=== PATIENT | female | born 1985 | race Caucasian/White ===

== ENCOUNTER 2018-05-29 06:10 | Inpatient (IN) | payer MEDICAID ==
[2018-05-29] MEDS ORDERED: cefOXitin 2 GM in Sodium Chloride 0.9% 50 ML IV ONE (06:30)
[2018-05-29] MEDS ORDERED: Scopolamine 1.5 MG Transdermal Patch TOP SCH (06:30)
[2018-05-29] MEDS ORDERED: Acetaminophen 500 MG Tab PO ONE (06:30)
[2018-05-29] MEDS ORDERED: Dextrose 5%-Lactated Ringers 1,000 ML IV SCH ×2 (06:30→10:45)
[2018-05-29] MEDS ORDERED: Gabapentin 300 MG Cap PO ONE (06:30)
[2018-05-29] MEDS ORDERED: Celecoxib 200 MG Cap PO ONE (06:30)
[2018-05-29] MEDS ORDERED: cefOXitin 2 GM Vial ONE (06:56)
[2018-05-29] MEDS ORDERED: Albuterol/Ipratropium 3.0-0.5 MG/3 ML Neb Soln NEB ONE (07:00)
[2018-05-29] MEDS ORDERED: Lidocaine 2% 100 MG/5 ML Syringe IVPUSH SCH (07:00)
[2018-05-29] MEDS ORDERED: Ketamine 50 MG in Sodium Chloride 0.9% 49.5 ML IV SCH (07:00)
[2018-05-29] MEDS ORDERED: Ropivacaine 60 ML, Dexamethasone 8 MG, EPINEPHrine 0.4 MG, Sodium Chloride 0.9% 17.6 ML NERVRT SCH ×4 (07:00)
[2018-05-29] MEDS ORDERED: Ketamine 500 MG/5 ML MDV IV SCH (07:00)
[2018-05-29] MEDS ORDERED: fentaNYL 250 MCG/5 ML SDV ONE ×2 (07:02→07:50)
[2018-05-29] MEDS ORDERED: Dexamethasone 4 MG/ML SDV ONE (07:03)
[2018-05-29] MEDS ORDERED: Neostigmine Methylsulfate 1 MG/ML 5 ML Syringe ONE (07:03)
[2018-05-29] MEDS ORDERED: Succinylcholine 200 MG/10 ML MDV ONE (07:03)
[2018-05-29] MEDS ORDERED: Glycopyrrolate 0.2 MG/ML 5 ML MDV ONE (07:03)
[2018-05-29] MEDS ORDERED: Ondansetron 4 MG/2 ML SDV ONE (07:03)
[2018-05-29] MEDS ORDERED: Propofol 200 MG/20 ML SDV ONE (07:03)
[2018-05-29] MEDS ORDERED: Rocuronium 50 MG/5 ML Vial ONE (07:03)
[2018-05-29] MEDS ORDERED: Lactated Ringers 1,000 ML ONE (07:06)
[2018-05-29 07:13] LABS: HEMOGLOBIN A1C 8.6 % (4.5-6.2)
[2018-05-29] MEDS ORDERED: Labetalol 20 MG/4 ML Syringe ONE (08:06)
[2018-05-29] MEDS ORDERED: cefOXitin 2 GM Vial IRR ONE (08:30)
[2018-05-29] MEDS ORDERED: hydrOXYzine HCl 100 MG/2 ML SDV IM ONE (09:20)
[2018-05-29] MEDS ORDERED: Insulin Lispro 100 Unit/ML 3 ML KwikPen SUBCUT ONE (09:25)
[2018-05-29] MEDS ORDERED: Albuterol/Ipratropium 3.0-0.5 MG/3 ML Neb Soln INH PRN (10:44)
[2018-05-29] MEDS ORDERED: SCOPOLAMINE PATCH ASK TOP SCH (10:44)
[2018-05-29] MEDS ORDERED: Labetalol 20 MG/4 ML Syringe IVPUSH PRN (10:44)
[2018-05-29] MEDS ORDERED: HYDROmorphone 0.5 MG/0.5 ML Syringe IVPUSH PRN (10:44)
[2018-05-29] MEDS ORDERED: Metoclopramide 10 MG/2 ML SDV IVPUSH PRN (10:44)
[2018-05-29] MEDS ORDERED: HYDROmorphone 1 MG/ML Syringe IV PRN (10:44)
[2018-05-29] MEDS ORDERED: Ondansetron 4 MG/2 ML SDV IVPUSH PRN (10:44)
[2018-05-29] MEDS ORDERED: hydrOXYzine HCl 100 MG/2 ML SDV IM PRN (10:44)
[2018-05-29] MEDS ORDERED: diphenhydrAMINE 50 MG/ML SDV IVPUSH PRN (10:44)
[2018-05-29] MEDS: Lidocaine 0.4%/D5W 2 GM/500 ML BAG IV SCH (11:20)
[2018-05-29] MEDS: Lactated Ringers 1,000 ML IV SCH ×2 (11:30→20:49)
[2018-05-29] MEDS: Albuterol/Ipratropium 3.0-0.5 MG/3 ML Neb Soln INH SCH ×3 (11:30→20:49)
[2018-05-29] MEDS: Gabapentin 250 MG/5 ML Solution ML 470 ML Bottle PO SCH ×2 (13:12→20:48)
[2018-05-29] MEDS: cefOXitin 2 GM in Sodium Chloride 0.9% 50 ML IV SCH ×2 (13:54→20:48)
[2018-05-29] MEDS ORDERED: Pantoprazole 40 MG Vial IVPUSH SCH (14:00)
[2018-05-29] MEDS ORDERED: MVI, Adult with Vitamin K 10 ML, Thiamine 200 MG, Chromium/Copper/Mang/Selen/Zn 1 ML in... IV SCH ×4 (16:00)
[2018-05-29] MEDS: Insulin Lispro 100 Unit/ML 3 ML KwikPen SUBCUT PRN ×2 (16:29→22:26)
[2018-05-29] MEDS: Acetaminophen Soln 650 MG/20.3 ML UD Cup PO SCH ×2 (16:30→22:26)
[2018-05-29] MEDS: Heparin Sodium 5,000 Units/ML Vial SUBCUT SCH (16:30)
[2018-05-29] MEDS: metFORMIN 500 MG Tab PO SCH (16:36)
[2018-05-30] MEDS: cefOXitin 2 GM in Sodium Chloride 0.9% 50 ML IV SCH ×2 (02:33→08:43)
[2018-05-30] MEDS: Acetaminophen Soln 650 MG/20.3 ML UD Cup PO SCH ×4 (03:28→21:49)
[2018-05-30] MEDS: Heparin Sodium 5,000 Units/ML Vial SUBCUT SCH ×2 (03:28→16:18)
[2018-05-30] MEDS ORDERED: Iohexol 647 MG/ML 50 ML SDV PO SCH (04:00)
[2018-05-30] MEDS: Insulin Lispro 100 Unit/ML 3 ML KwikPen SUBCUT PRN ×3 (04:23→16:18)
--- NOTE | 2018-05-30 05:21 | CRLCR ---
INDICATION: Evaluate gastric bypass. TECHNIQUE: Two views of the abdomen. FINDINGS: There is a drain in the left upper quadrant. Contrast opacifying left abdominal jejunal segments with reported gastrojejunostomy. Gastric lumen not opacified. No gross extravasation. No free air under the left hemidiaphragm. Dictated by Raza Orona MD @ Jun 01 2018 9:01AM Signed by Dr. Raza Orona @ Jun 01 2018 9:03AM
[2018-05-30] MEDS: Albuterol/Ipratropium 3.0-0.5 MG/3 ML Neb Soln INH SCH ×4 (07:12→21:49)
[2018-05-30] MEDS ORDERED: Loratadine 10 MG Tab.DIS PO PRN (07:55)
[2018-05-30] MEDS ORDERED: Lactated Ringers 1,000 ML IV SCH (08:00)
[2018-05-30] MEDS: Lidocaine 0.4%/D5W 2 GM/500 ML BAG IV SCH (08:11)
[2018-05-30] MEDS ORDERED: Ondansetron 4 MG Tab.DIS PO PRN (08:21)
[2018-05-30] MEDS: Celecoxib 200 MG Cap PO SCH (08:47)
[2018-05-30] MEDS: metFORMIN 500 MG Tab PO SCH ×2 (08:47→16:20)
[2018-05-30] MEDS: Sertraline 50 MG Tab PO SCH (08:48)
[2018-05-30] MEDS: SCOPOLAMINE PATCH CHECK TOP SCH (08:53)
[2018-05-30] MEDS: Pantoprazole 40 MG Delayed-Release Granules 1 Packet PO SCH (09:02)
[2018-05-30] MEDS: Gabapentin 250 MG/5 ML Solution ML 470 ML Bottle PO SCH ×3 (09:02→21:49)
[2018-05-30] MEDS: Mometasone Furoate Powder 220 MCG/Puff 14 Dose Inhaler INH SCH (09:06)
[2018-05-30] MEDS ORDERED: MVI, Adult with Vitamin K 10 ML, Thiamine 200 MG, Chromium/Copper/Mang/Selen/Zn 1 ML in... IV SCH ×4 (16:00)
[2018-05-31] MEDS: Heparin Sodium 5,000 Units/ML Vial SUBCUT SCH (04:04)
[2018-05-31] MEDS: Acetaminophen Soln 650 MG/20.3 ML UD Cup PO SCH ×2 (04:04→10:14)
[2018-05-31] MEDS: Mometasone Furoate Powder 220 MCG/Puff 14 Dose Inhaler INH SCH (06:59)
[2018-05-31] MEDS: Albuterol/Ipratropium 3.0-0.5 MG/3 ML Neb Soln INH SCH ×2 (06:59→10:54)
[2018-05-31] MEDS: Celecoxib 200 MG Cap PO SCH (08:01)
[2018-05-31] MEDS: metFORMIN 500 MG Tab PO SCH (08:01)
[2018-05-31] MEDS: Pantoprazole 40 MG Delayed-Release Granules 1 Packet PO SCH (08:01)
[2018-05-31] MEDS: Sertraline 50 MG Tab PO SCH (08:01)
[2018-05-31] MEDS: Gabapentin 250 MG/5 ML Solution ML 470 ML Bottle PO SCH (08:01)
[2018-05-31] MEDS ORDERED: Magnesium Hydroxide 400 MG/5 ML Susp 30 ML Cup PO ONE (08:41)
[2018-05-31] MEDS ORDERED: Cyanocobalamin (Vitamin B12) 1,000 MCG/ML SDV IM ONE (09:00)
[2018-05-31] MEDS: SCOPOLAMINE PATCH CHECK TOP SCH (09:26)
[2018-05-31] MEDS: Insulin Lispro 100 Unit/ML 3 ML KwikPen SUBCUT PRN (10:15)
--- NOTE | 2018-06-01 08:26 | PN ---
DATE OF SERVICE: 05/30/2018 The patient has been afebrile with stable vital signs, status post Nagi-en-Y gastric bypass yesterday. Her upper GI x-ray looks good. Oral intake thus far has been satisfactory, has been unremarkable in terms of any pain and such, and drains look good. The plan will be she will to go to a step-2 diet with no solids today. We will restart some of her pertinent oral medications. Blood sugars are still running a little bit high, but I will switch her IV to plain LR, and I think they will come down today. We will leave her on the relatively low dose of alogliptin and metformin for today and see how the blood sugars are tracking tomorrow. Slade Hurley MD /[id number]
--- NOTE | 2018-06-04 08:39 | OR ---
DATE OF PROCEDURE: 05/29/2018 PREOPERATIVE DIAGNOSIS: Morbid obesity. POSTOPERATIVE DIAGNOSES: 1. Morbid obesity. 2. Marked hepatomegaly. 3. Paraesophageal diaphragmatic hernia. OPERATIVE PROCEDURES: 1. Laparoscopic Nagi-en-Y gastric bypass with long-limb gastroenterostomy (24854). 2. Jerardo-Cut needle liver biopsy (77475). 3. Repair of paraesophageal diaphragmatic hernia (41708). ANESTHESIA: General. INDICATION FOR PROCEDURE: This is a 32-year-old presenting with longstanding morbid obesity and increasingly significant comorbidities. After preoperative evaluation and discussion, she wished to proceed with gastric bypass. Potential risks of the procedure including bleeding, infection, leaks from various GI tract closures, problems with bowel obstruction over time, as well as the possibility of cardiopulmonary, septic, or hemorrhagic complications leading to were all discussed, and the patient wishes to proceed. DETAILS OF PROCEDURE: The patient was taken to the operating room and after general endotracheal anesthesia was induced, she was initially placed in a lithotomy position, and the abdomen was prepped and draped. At 15 cm inferior and 5 cm left of the xiphoid process, a transverse incision was made and the peritoneal cavity entered under direct vision with an Optiview trocar, inflated to 15 mmHg pressure of CO2. Laparoscope was then reinserted and no underlying trocar insertion site injuries were seen. Following this, bilateral subcostal transversus abdominis plane blocks were placed and five additional trocars were placed across the upper and mid abdomen. The patient was noted to have marked hepatomegaly with the liver being grossly fatty infiltrated. Jerardo-Cut needle biopsies were obtained from left lobe of liver. Minimal bleeding from the biopsy sites was controlled with electrocautery. The omentum was then divided in the midline up to the level of the transverse colon. This allowed identification of the small bowel at the ligament of Treitz. Small bowel was then traced out 200 cm distal to that point, where it was divided transversely with a ZEUS stapler. Small bowel was then traced out additional 200 cm, where the [id number]-fayp enteroenterostomy was accomplished with an internal firing of the Endo-ZEUS 60 mm stapler. Common opening was then closed transversely with the same stapler, angles anastomosed, and mesenteric defect approximated with some 0 Ethibond stitch and fibrin sealant. The divided end of Nagi limb was then from the mesentery for a few centimeters, which allowed an antecolic positioning of the Nagi limb up to the level of the gastroesophageal junction without tension. The liver was then retracted anteriorly. The patient was noted to have a quite large paraesophageal diaphragmatic hernia with roughly a quarter of the gastric volume being up in the chest. This was reduced, and the peritoneum overlying incised and reflected downward. The diaphragmatic hernia was then repaired with some 0 Ethibond sutures reinforced with PTFE pledgets. At this point, the gastrointestinal balloon catheter was inflated to 15 mL, pulled up snuggly against the EG junction. Gastric wall over the apex of balloon was then marked with electrocautery, and the balloon catheter deflated and withdrawn. The lesser omental tissue adjacent to the gastric cardia was then incised allowing dissection behind the stomach at that level. Pouch formation was initiated with a transverse firing of the ZEUS stapler at the level of the cauterized riley and then completed with additional firings of the ZEUS stapler up to and through the angle of His. Upon completion of the pouch, both staple lines were noted to be intact. The anvil of a 25-mm EEA stapler was then attached to [place] sump type tube. The latter was brought down through the mouth, taken out through a small opening in the gastric pouch, allowing the anvil likewise to be pulled down to within the gastric pouch. The divided end of the Nagi limb was then opened, and the main body of the EEA stapler passed several centimeters into the Nagi limb, brought up the anvil and united with it, thus creating the gastrojejunostomy. Upon removal of the stapler, double donuts of mucosa were noted within it. The small bowel was closed off with a vascular staple line. Gastrojejunostomy was reinforced with some 3-0 Vicryl seromuscular stitch along with fibrin sealant. A leak test was accomplished with injection of 120 mL of air in the gastric pouch while it submerged with cefoxitin-containing saline solution. No leaks were identified. Two [place] drains were then placed adjacent to the gastrojejunostomy, taken out the subcostal trocar sites. At that point, the trocars were removed and the peritoneal cavity deflated. Incisions were closed with 4-0 Vicryl skin stitch, which was also used to fix the drains. The patient had dressing applied. The patient was taken to the recovery room in a satisfactory condition. Slade Hurley MD /[id number]
--- NOTE | 2018-06-04 09:18 | DISCH ---
FINAL DIAGNOSES: 1. Morbid obesity. 2. Type 2 diabetes mellitus. 3. Asthma. 4. A large paraesophageal diaphragmatic hernia with associated reflux esophagitis. 5. Marked hepatomegaly with transaminitis. OPERATIVE PROCEDURES: Done on 05/29/18, laparoscopic Nagi-en-Y gastric bypass with long limb gastroenterostomy, Jerardo-Cut needle liver biopsy, and repair of paraesophageal diaphragmatic hernia. SUMMARY: This 32-year-old female was presenting with longstanding morbid obesity and increasingly significant comorbidities. After preoperative evaluation and discussion, she wished to proceed with a gastric bypass procedure which was done, along with liver biopsy and repair of a fairly large diaphragmatic hernia on 05/29/2018. Postoperatively, the patient has had no major problems. The patient presented with a diagnosis of type 2 diabetes mellitus. She, as of yet, however, has not been measuring her blood sugars at home. Preoperative hemoglobin A1c obtained, it was 8.6, and she came in on metformin 1000 mg p.o. b.i.d. and Januvia 50 mg p.o. daily for management of her diabetes. At this point, she will be discharged on those same medications, and she will be instructed to buy a blood sugar measuring device on the way home and begin measuring blood sugars q.i.d., and we will have clinical educator clinically contact the patient tomorrow to begin coaching the patient regarding management of her blood sugars. I would expect, over time, probably will be able to decrease the intensity of the diabetic management, hopefully getting off of the medications. The patient's response to the surgery would imply that she probably has had type 2 diabetes mellitus somewhat longer than what would be in the patient's history. Otherwise, she will be sent with a step-2 diet until the first appointment, which will be with Dee Dee James at [facility] on 06/08/2018 and, for pain management, should continue Celebrex and Tylenol, and we will also give her 2 weeks of gabapentin 300 mg p.o. t.i.d., and she will be restarting her usual medications. We will have her stay on ranitidine 150 mg daily until she is off Celebrex, and she is instructed not to take the ibuprofen, which she was on intermittently preoperatively. The patient was also noted to have mildly low magnesium, which was supplemented during the hospitalization with some IV magnesium.
== END 2018-05-31 13:45 | disposition home or self-care (01) | DRG 621 ==
LOC: JP.SDS 06:10 → JP.SDSSCHI 06:10 → EDSTATUS 07:30 → JP.MS 09:20
PROVIDERS: ADMIT Surgery; ATTEND Surgery
PROC: 0D164ZA Bypass Stomach to Jejunum, Percutaneous Endoscopic Approach (ICD-10-PCS; principal; 2018-05-29)
PROC: 0FB24ZX Excision of Left Lobe Liver, Percutaneous Endoscopic Approach, Diagnostic (ICD-10-PCS; 2018-05-29)
PROC: 0BQT4ZZ Repair Diaphragm, Percutaneous Endoscopic Approach (ICD-10-PCS; 2018-05-29)
DX: E66.01 Morbid (severe) obesity due to excess calories (principal); Z68.42 Body mass index [BMI] 45.0-49.9, adult; R16.0 Hepatomegaly, not elsewhere classified; K44.9 Diaphragmatic hernia without obstruction or gangrene; K76.0 Fatty (change of) liver, not elsewhere classified; J45.20 Mild intermittent asthma, uncomplicated; F41.1 Generalized anxiety disorder; K21.9 Gastro-esophageal reflux disease without esophagitis; E11.9 Type 2 diabetes mellitus without complications; R74.0 Nonspecific elevation of levels of transaminase and lactic acid dehydrogenase [LDH]; Z79.84 Long term (current) use of oral hypoglycemic drugs; E83.42 Hypomagnesemia
CPT/HCPCS: 36415; 74240; 81025; 82962; 83036; 83735; 84100; 86850; 86900; 86901; 88307; 88313; 94640; 94762; A9270-GY; C9113; J0171; J0330; J0694; J1100; J1170; J1644; J1815; J1815-GY; J2001; J2405; J2704; J2710; J2795; J3010; J3410; J3411; J3420; J3490; J7030; J7042; J7050; J7120; J7620-GY; Q9967